=== PATIENT | female | born 1955 | race Caucasian/White ===

== ENCOUNTER 2017-12-16 04:21 | Emergency (ER) | END 2017-12-16 11:20 | disposition home or self-care (01) ==

== ENCOUNTER 2018-10-18 07:05 | Emergency (ER) | payer OTHER ==
[~2018-10-18] VITALS: Wt 89.6 kg
[~2018-10-18 07:05] MED LIST: LEVO50TA7 PO; MTF1000T PO; NAPR-688 PO; ONDA4TAB11 PO; POLY17PO6 PO
[2018-10-18 07:09] VITALS: BP 151/65; PULSE 78; RESP 16
[2018-10-18] MEDS ORDERED: NAPR-985 PO (07:45)
[2018-10-18] MEDS ORDERED: CYCL10TA7 PO (07:45)
[2018-10-18] MEDS ORDERED: HYDR-4011 PO (07:45)
[2018-10-18] MEDS ORDERED: NAPROXEN 500 MG TAB PO ONE (08:00)
[2018-10-18] MEDS ORDERED: CYCLOBENZAPRINE 10 MG TAB PO ONE (08:00)
[2018-10-18] MEDS ORDERED: HYDROCODONE/APAP (5/325) TAB PO ONE (08:00)
--- NOTE | 2018-10-18 08:27 | ERD ---
ER Documentation Chief Complaint Chief Complaint left lower leg pain x2 weeks, no injury HPI This is a 63-year-old female with a history of diabetes mellitus who presents ED with complaints of left knee pain status post picking up a package 12 days ago. Patient states that 12 days ago she was picking up a package she felt a pop in her left knee and she is been experiencing posterior leg pain ever since. Patient admits to some painful range of motion. Denies decreased range of motion, tingling, numbness, lack sensation. Patient admits to some pain with ambulation. Denies fever, chills,. Patient was seen by primary care doctor and had an x-ray performed which was unremarkable. Denies lower extremity swelling ROS All systems reviewed and are negative except as per history of present illness. Medications Home Meds Active Scripts Cyclobenzaprine Hcl* (Cyclobenzaprine Hcl*) 10 Mg Tablet, 10 MG PO TID, #15 TAB Prov:CHRISTEN GORDON PA-C 10/18/18 Hydrocodone/Acetaminophen (Clarion 5-325 Tablet) 1 Each Tablet, 1 TAB PO Q6H PRN for PAIN, #7 TAB Prov:CHRISTEN GORDON PA-C 10/18/18 Naproxen* (Naprosyn*) 500 Mg Tablet, 500 MG PO BID PRN for PAIN AND/OR INFLAMMATION, #30 TAB Prov:CHRISTEN GORDON PA-C 10/18/18 Naproxen* (Naproxen*) 500 Mg Tablet, 500 MG PO BID PRN for PAIN, #20 TAB Prov:TESSY AZAR DO 12/16/17 Ondansetron (Zofran Odt) 4 Mg Tab.rapdis, 4 MG PO Q6 for NAUSEA AND/OR VOMITING, #10 Prov:TESSY AZAR DO 12/16/17 Polyethylene Glycol* (Miralax*) 17 Gm Powd.pack, 17 GM PO DAILY for CONSTIPATION, #7 Prov:TESSY AZAR DO 12/16/17 Reported Medications Metformin* (Glucophage*) 1,000 Mg Tablet, 1000 MG PO BID, #60 TAB 12/16/17 Levothyroxine Sodium* (Levothyroxine Sodium*) 50 Mcg Tablet, 50 MCG PO BEFORE BREAKFAST, #30 TAB 12/16/17 Allergies Allergies: Coded Allergies: No Known Allergy (Unverified , 10/18/18) PMhx/Soc Medical and Surgical Hx: pt denies Surgical Hx History of Surgery: No Anesthesia Reaction: No Hx Neurological Disorder: No Hx Respiratory Disorders: No Hx Cardiac Disorders: No Hx Psychiatric Problems: No Hx Miscellaneous Medical Probl: Yes (dm , hypo thyroid ) Hx Alcohol Use: No Hx Substance Use: No Hx Tobacco Use: No Smoking Status: Never smoker FmHx Family History: diabetes Physical Exam Vitals Vital Signs Date Temp Pulse Resp B/P (MAP) Pulse Ox O2 O2 Flow FiO2 Time Delivery Rate 10/18/18 97.8 78 16 151/65 97 07:09 (93) Physical Exam Const: No acute distress Head: Atraumatic Eyes: Normal Conjunctiva ENT: Normal External Ears, Nose and Mouth. Neck: Full range of motion. No meningismus. Resp: Clear to auscultation bilaterally Cardio: Regular rate and rhythm, no murmur Back: No midline or flank tenderness Ext: No cyanosis, or edema Lower Extremity -l efbilateral: Skin: No laceration, swelling or evidence of external trauma Compartments: Soft Motor: Full active range of motion hip/knee/ankle/foot Sensation: Intact to light touch FDWS/MF/LF/P surfaces. Bones: Mild tenderness along posterior knee, nontender pelvis/knee/proximal tibia/ malleoli/foot Joints: No effusion or laxity Pulses/Perfusion: 2+ DP, Capillary refill < 2 seconds Homans sign negative, no calf tenderness, no evidence of Achilles tendon rupture Neur: Awake and alert Psych: Normal Mood and Affect Results 24 hrs Current Medications Medications Dose Sig/Megan Start Time Status Last (Trade) Ordered Route PRN Stop Time Admin Dose Reason Admin Naproxen 500 mg ONCE ONCE 10/18/18 DC 10/18/18 (Naprosyn) PO 08:00 10/18/18 07:58 08:01 20 mg ONCE ONCE 10/18/18 DC 10/18/18 Cyclobenzapri PO 08:00 10/18/18 07:58 ne HCl 08:01 (Flexeril) 1 tab ONCE ONCE 10/18/18 DC 10/18/18 Acetaminophen PO 08:00 10/18/18 07:58 / 08:01 Hydrocodone Bitart (Clarion (5/325)) Procedures/MDM ER COURSE: The patient was given Flexeril, Clarion, naproxen The medication was well tolerated and the patient reports improvement in symptoms. The patient was stable throughout ED course. I kept the patient and/or family informed of laboratory and diagnostic imaging results throughout the emergency room course. The patient was promptly evaluated and a treatment plan was devised based on H&P and other data. This plan was discussed with the patient who agreed and had no further questions or concerns prior to discharge. MEDICAL DECISION MAKIN-year-old female with a history of diabetes mellitus presents ED with left knee and leg injury that occurred 12 days ago. Patient was seen by primary care physician already and had an x-ray performed. This likely could be a muscle strain. Advised patient to follow-up with charge entry specialist to rule out any meniscal or internal knee injury. Also advised physical therapy. Patient was given pain medication in the ED and reports feeling better. History and physical examination other data not consistent with emergent processes including but not limited to fracture, dislocation, tendon rupture, ischemia, neurovascular injury, compartment syndrome, septic joint, avascular necrosis, osteomyelitis, necrotizing fasciitis, septic joint, septic arthritis, or other emergent conditions. Patient's vitals are stable and can be managed outpatient with close follow-up. Advised patient to follow-up with primary care in the next 48 hours. Return to ED with any worsening symptoms. DISPOSITION PLAN: We discussed follow up with the patient's primary care doctor within 24 to 48 hours. Patient counseled regarding my diagnostic impression and care plan. Prior to discharge all questions answered. Pt agrees with treatment plan and understands strict return precautions. Precautionary instructions provided including instructions to return to the ER if not improving or for any worsening or changing symptoms or concerns. SPECIALIST FOLLOW UP RECOMMENDED: Orthopedic Patient has been advised to follow up with primary care in 1-2 days. Disclaimer: Inadvertent spelling and grammatical errors are likely due to EHR/dictation software use and do not reflect on the overall quality of patient care. Also, please note that the electronic time recorded on this note does not necessarily reflect the actual time of the patient encounter. Departure Diagnosis: Primary Impression: Injury of left leg Encounter type: initial encounter Qualified Codes: S89.92XA - Unspecified injury of left lower leg, initial encounter Additional Impression: Strain of left knee and leg Encounter type: initial encounter Qualified Codes: S86.912A - Strain of unspecified muscle(s) and tendon(s) at lower leg level, left leg, initial encounter Condition: Stable Patient Instructions: Reducing Knee Pain and Swelling, Knee Pain, Uncertain Cause, Muscle Strain, Extremity Referrals: [facility] Usted se casas hecho un examen mdico de control que le indica que no est en teagan condicin que requiera tratamiento urgente en el Departamento de Emergencia. Un estudio ms profundo y el tratamiento de sweet condicin pueden esperar sin ningn riesgo hasta que usted sea atendida/o en el consultorio de sweet mdico o teagan clnica. Es responsabilidad suya arreglar teagan joceline para el seguimiento del eber. MANEJO DE CONDICIONES NO URGENTES EN EL FUTURO 1) Si usted tiene un mdico de atencin primaria: Usted debera llamar a sweet mdico de atencin primaria antes de venir al departamento de emergencia. Despus de las horas de consultorio, sweet doctor o sweet asociado/a est disponible por telfono. El mdico o enfermero de geronimo en el servicio telefnico puede asesorarle por leo medio para atender el problema, o eber contrario se puede programar teagan joceline. 2) Si usted no tiene un mdico de atencin primaria: Llame al mdico o clnica de referencia que aparece abajo [place]lton las horas de consultorio para hacer teagan joceline para que le vean. CLINICAS: [facility] [phone] [facility] [phone] [facility] [place] [phone] [address] [place] [id number] [phone] [place] [phone] [facility]. [phone] [address] Additional Instructions: Paciente aconseja volver a Departamento de urgencias inmediatamente para sntomas nuevos o que empeoran . Paciente aconseja posteriores con el PCP en 1-2 echeverria . Paciente verbaliza la comprehensin y est de acuerdo con el tratamiento y el curso de accin. Si el paciente no tiene ninguna de atencin primaria pueden seguir con [facility] [phone] [place] [address] o [facility] + [address] [address] CHRISTEN GORDON PA-C Oct 18, 2018 08:27
== END 2018-10-18 08:06 | disposition home or self-care (01) ==
LOC: FTE 07:05
DX: S86.912A Strain of unspecified muscle(s) and tendon(s) at lower leg level, left leg, initial encounter (principal); E11.9 Type 2 diabetes mellitus without complications; E03.9 Hypothyroidism, unspecified; X50.0XXA Overexertion from strenuous movement or load, initial encounter; Y92.9 Unspecified place or not applicable; Z79.84 Long term (current) use of oral hypoglycemic drugs
CPT/HCPCS: 99283